=== PATIENT | female | born 2000 | race Caucasian/White ===

== ENCOUNTER 2019-03-22 04:11 | Inpatient (IN) | payer OTHER ==
[2019-03-22] VITALS (15 sets, daily range): BP systolic 95–117
[~2019-03-22] VITALS: Ht 154.9 cm; Wt 54.9 kg
--- NOTE | 2019-03-22 04:11 | NUR ---
0411 - Patient to ER bed 1 to gown for evaluation. Side rails up.
--- NOTE | 2019-03-22 04:11 | NUR ---
0411 - ER at bedside examining patient.
--- NOTE | 2019-03-22 04:11 | NUR ---
0411 - Called poison control prior to pt arrival. Cnc Mill And Lathe Operator stated the following: - Administer 50gm activated charcoal as long as it is safe to do so. - Draw salicylate levels Q2hr, if >35mg/dl, change fluids to Bicarb drip. If approaching or >90, consider hemodialysis. Continue to draw salicylate levels until peak and decline of at least 2 points. - If salicylate levels rise, consider GoLytely via NGT for whole bowel wash. - Draw a CMP initially, and then BMP Q2-4hr. If abnormal, check ABG.
--- NOTE | 2019-03-22 04:11 | NUR ---
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 Pt placed to gown and vehicle monitor technician, VSS. Pt AAOx3, respirations even and non-labored, denies c/o pain or discomfort, + nausea, states that she is depressed and doesn't want to live. Pt also states that she took xanax and alcohol.
[2019-03-22] MEDS ORDERED: ACTIVATED CHARCOAL 50 GM ORAL.SUSP PO ONE ×2 (04:15→04:24)
[2019-03-22] MEDS ORDERED: NACL 0.9% 1,000 ML IV ONE ×2 (04:15→05:15)
[2019-03-22] MEDS ORDERED: ONDANSETRON HCL 4 MG/2 ML VIAL IVP ONE (04:15)
[2019-03-22] MEDS ORDERED: ONDANSETRON HCL 4 MG/2 ML VIAL ONE (04:21)
--- NOTE | 2019-03-22 04:30 | NUR ---
Pt is resting in bed vital signs are stable. Will continue to monitor
--- NOTE | 2019-03-22 04:34 | NUR ---
Pt assisted to bedside comode, urine specimen collected and sent to lab.
[2019-03-22 04:35] LABS: BASOPHILS # (AUTO) 0.1 K/uL (0.0-0.2); BASOPHILS % (AUTO) 0.5 % (0.0-2.0); EOSINOPHILS # (AUTO) 0.1 K/uL (0.0-0.4); EOSINOPHILS % (AUTO) 0.5 % (0.0-4.0); HEMATOCRIT 38.8 % (36-48); HEMOGLOBIN 12.6 g/dL (12.0-16.0); LYMPHOCYTES # (AUTO) 3.7 K/uL (1.0-5.5); LYMPHOCYTES % (AUTO) 31.4 % (20.5-51.5); MEAN CORPUSCULAR HEMOGLOBIN 30 pg (27-31); MEAN CORPUSCULAR HGB CONC 33 % (32-36); MEAN CORPUSCULAR VOLUME 91 fL (79.0-98.0); MONOCYTES # (AUTO) 1.2 K/uL (0.0-1.0); MONOCYTES % (AUTO) 9.9 % (1.7-9.3); NEUTROPHILS # (AUTO) 6.8 K/uL (1.8-7.7); NEUTROPHILS % (AUTO) 57.7 % (40.0-70.0); PLATELET COUNT (AUTO) 307 K/uL (130-430); RED BLOOD CELL COUNT(AUTO) 4.26 MIL/uL (4.2-6.2); RED CELL DISTRIBUTION WIDTH 14.5 % (9.0-15.0); WHITE BLOOD COUNT (AUTO) 11.8 K/uL (4.5-11.0)
[2019-03-22 04:39] LABS: BILIRUBIN,URINE NEGATIVE (NEGATIVE); BLOOD, URINE NEGATIVE (NEGATIVE); CLARITY/URINE CLEAR (CLEAR); COLOR,URINE YELLOW (YELLOW); GLUCOSE,URINE NEGATIVE (NEGATIVE); KETONES,URINE TRACE (NEGATIVE); LEUKOCYTE ESTERASE ,URINE NEGATIVE (NEGATIVE); NITRITE, URINE NEGATIVE (NEGATIVE); PH,URINE 5.5 (5.0-8.0); PROTEIN URINE NEGATIVE (NEGATIVE); UROBILINOGEN,URINE 0.2 (0.2-1.0)
--- NOTE | 2019-03-22 04:40 | NUR ---
[facility] department arrive with empty bottle of medication that pt took. Active ingredients per tablet: Acetaminophen 250 mg, Aspirin 250 mg, and Caffeine 65 mg. Called Poison Control at [phone] and spoke with Yaniv. In addition to previous recommendations, obtain baseline Tylenol and repeat in 4 hours. If Tylenol level 150 or greater, start Mucomyst. Dr. Harris notified. Will continue to monitor patient.
[2019-03-22 04:48] LABS: BARBITURATE, URINE NEGATIVE (NEG <=200); BENZODIAZEPINE, URINE NEGATIVE (NEG <=150); CANNABINOID, URINE POSITIVE (NEG <=50); COCAINE, URINE NEGATIVE (NEG <=150); METHAMPHETAMINES SCREEN,URINE NEGATIVE (NEG <=500); OPIATE, URINE NEGATIVE (NEG <=100); PHENCYCLIDINE SCREEN,URINE NEGATIVE (NEG <=25); UR TRICYCLIC ANTIDEPRESSANTS NEGATIVE (NEG <=300); URINE AMPHETAMINE NEGATIVE (NEG <=500); URINE METHADONE NEGATIVE (NEG <=200); URINE OXYCODONE SCREEN NEGATIVE (NEG <=100); URINE PROPOXYPHENE SCREEN NEGATIVE (NEG <=300)
[2019-03-22 04:49] LABS: CALCIUM 8.7 mg/dL (8.4-11.0); CREATININE 0.61 mg/dL (0.55-1.30)
--- NOTE | 2019-03-22 04:50 | NUR ---
Pt assisted to bedside comode. Pt denies c/o pain or discomfort, VSS.
[2019-03-22 04:54] LABS: TOTAL BILIRUBIN 0.6 mg/dL (0.0-1.0)
[2019-03-22 04:58] LABS: POTASSIUM 2.8 mmol/L (3.5-5.1)
[2019-03-22] MEDS ORDERED: KCL 40mEq in D5/0.45NS 1000 mL 1,000 ML IV ONE (05:00)
--- NOTE | 2019-03-22 05:10 | NUR ---
Pt placed on 5150 hold by Research And Development Technicianjasmyne Dorsey # [id number] ([facility]'s Dept.)
--- NOTE | 2019-03-22 05:30 | NUR ---
Pt AAOx3, even and non-labored respirations, denies c/o pain or discomfort, no needs verbalized. VSS. IVFs infusing to patent PIV LAC with no s/s infiltration.
[2019-03-22] MEDS ORDERED: NACL 0.9% 1,000 ML IV SCH (05:45)
[2019-03-22] MEDS ORDERED: COMMUNICATION ORDER XX ONE (05:45)
--- NOTE | 2019-03-22 05:54 | NUR ---
Patient will be admitted to care of Dr. Stapleton. Admitted to ICU unit. Will go to room 1. Belongings list completed. Summary report printed. Report will be given at bedside.
--- NOTE | 2019-03-22 06:15 | NUR ---
Admission Note Pt in bed AAO. NSR shown on monitor. Pt on RA saturating in the mid-high 90s. VSS. No s/s of distress or c/o of pain at this time. Pt has LAC 18g in place. Will continue to monitor.
--- NOTE | 2019-03-22 06:28 | NUR ---
Consult Nephro. Sandra Cai called (Dr. Benedict mergers and acquisitions consultant) spoke to sunitha dialed [phone] Diaz
[2019-03-22] MEDS ORDERED: ALBUTEROL SULFATE 0.083% 2.5 MG/3 ML VIAL.NEB INH PRN (06:30)
--- NOTE | 2019-03-22 07:17 | NUR ---
Endorsement Report given to oncoming RN at bedside via SBA approach.
--- NOTE | 2019-03-22 07:20 | NUR ---
Received patient and endorsement from [facility] shift nurse. Patient in bed sleeping. Call light with in reach. Side rails up. In no acute distress.
[2019-03-22 07:21] LABS: BASOPHILS % (AUTO) 0.4 % (0.0-2.0); EOSINOPHILS % (AUTO) 0.1 % (0.0-4.0); HEMATOCRIT 35.5 % (36-48); HEMOGLOBIN 11.7 g/dL (12.0-16.0); LYMPHOCYTES % (AUTO) 17.4 % (20.5-51.5); MEAN CORPUSCULAR HEMOGLOBIN 30 pg (27-31); MEAN CORPUSCULAR HGB CONC 33 % (32-36); MEAN CORPUSCULAR VOLUME 91 fL (79.0-98.0); MONOCYTES # (AUTO) 0.9 K/uL (0.0-1.0); MONOCYTES % (AUTO) 8.2 % (1.7-9.3); NEUTROPHILS # (AUTO) 8.4 K/uL (1.8-7.7); NEUTROPHILS % (AUTO) 73.9 % (40.0-70.0); PLATELET COUNT (AUTO) 304 K/uL (130-430); RED BLOOD CELL COUNT(AUTO) 3.92 MIL/uL (4.2-6.2); RED CELL DISTRIBUTION WIDTH 14.7 % (9.0-15.0); WHITE BLOOD COUNT (AUTO) 11.4 K/uL (4.5-11.0)
[2019-03-22 07:30] LABS: CALCIUM 7.7 mg/dL (8.4-11.0); CREATININE 0.55 mg/dL (0.55-1.30); POTASSIUM 3.6 mmol/L (3.5-5.1)
--- NOTE | 2019-03-22 07:30 | NUR ---
Informed MD Mcintyre patient potassium 2.8. New order of potassium 60 mEq one time dose. Orders placed and carried out.
--- NOTE | 2019-03-22 07:30 | NUR ---
Patient sleeping in bed. Vital signs stable. In no acute distress. Side rails up, call light with in reach. Will continue to monitor.
[2019-03-22 07:36] LABS: ALBUMIN 3.5 g/dL (3.4-4.8); TOTAL BILIRUBIN 0.4 mg/dL (0.0-1.0)
--- NOTE | 2019-03-22 07:45 | NUR ---
Assisted patient to commode. Had one bowel movement. Call light with in reach. In no acute distress.
[2019-03-22] MEDS ORDERED: ACETYLCYSTEINE IV ONE ×3 (08:00→13:00)
[2019-03-22] MEDS ORDERED: D5W IV ONE ×3 (08:00→13:00)
--- NOTE | 2019-03-22 08:00 | NUR ---
MD Benedict new order bicarb drip 3 amp in D5w 100 cc/hr and to discuss labs with poison control. Orders placed and carried out.
--- NOTE | 2019-03-22 08:00 | NUR ---
Patient awake and alert. Vital signs stable. In no acute distress. Side rails up, call light with in reach. Will continue to monitor.
[2019-03-22] MEDS ORDERED: POTASSIUM CHLORIDE 10 MEQ TAB.PRT.SR PO ONE (08:15)
--- NOTE | 2019-03-22 08:15 | NUR ---
Patient awake and alert. Vital signs stable. In no acute distress. Side rails up, call light with in reach. Will continue to monitor.
--- NOTE | 2019-03-22 08:17 | NUR ---
Do from poison control called and was informed current labs. Stated may discontinue mucomyst and to repeat blood draw for acetaminophen and aspirin, informed MD Harrington and approved of order. MD Harrington stated no need to redraw blood work of aspirin and acetaminophen if trending down. Orders placed and carried out.
[2019-03-22] MEDS ORDERED: ONDANSETRON HCL 4 MG/2 ML VIAL IVP PRN (08:30)
--- NOTE | 2019-03-22 08:30 | NUR ---
Patient awake and alert. Vital signs stable. In no acute distress. Side rails up, call light with in reach. Will continue to monitor.
--- NOTE | 2019-03-22 08:31 | NUR ---
Consult Psych. Dr. Snider called (Dr. Colon television production clerk) spoke to temi dialed [phone] Mcintyre
[2019-03-22] MEDS ORDERED: POTASSIUM CHLORIDE 10 MEQ TAB.PRT.SR ONE (08:40)
--- NOTE | 2019-03-22 08:45 | NUR ---
Patient awake and alert. Vital signs stable. In no acute distress. Side rails up, call light with in reach. Will continue to monitor.
[2019-03-22] MEDS ORDERED: SODIUM BICARBONATE 8.4% VIAL 150 MEQ in D5W 1,000 ML IV SCH (09:00)
[2019-03-22] MEDS ORDERED: MAGNESIUM SULFATE 1 GM in NS 100 ML IV ONE (09:00)
--- NOTE | 2019-03-22 09:00 | NUR ---
Patient awake and alert in bed. Vital signs stable. In no acute distress. Side rails up, call light with in reach. Will continue to monitor.
--- NOTE | 2019-03-22 09:15 | NUR ---
Patient asleep laying in bed. Vital signs stable. In no acute distress. Side rails up, call light with in reach. Will continue to monitor.
[2019-03-22 09:17] LABS: PHOSPHORUS 3.5 mg/dL (2.7-4.5)
--- NOTE | 2019-03-22 09:45 | NUR ---
Patient asleep laying in bed. Vital signs stable. In no acute distress. Side rails up, call light with in reach. Will continue to monitor.
--- NOTE | 2019-03-22 10:00 | NUR ---
Patient asleep laying in bed. Vital signs stable. In no acute distress. Side rails up, call light with in reach. Will continue to monitor.
--- NOTE | 2019-03-22 10:15 | NUR ---
Patient talking to friend at bedside. Vital signs stable. In no acute distress. Side rails up, call light with in reach. Will continue to monitor.
--- NOTE | 2019-03-22 10:30 | NUR ---
Patient talking to friend at bedside. Vital signs stable. In no acute distress. Side rails up, call light with in reach. Will continue to monitor.
[2019-03-22] MEDS ORDERED: METOCLOPRAMIDE HCL 10 MG/2 ML VIAL IVP PRN (10:45)
--- NOTE | 2019-03-22 10:45 | NUR ---
Patient talking to friend at bedside. Vital signs stable. In no acute distress. Side rails up, call light with in reach. Will continue to monitor.
[2019-03-22] MEDS ORDERED: METOCLOPRAMIDE HCL 10 MG/2 ML VIAL ONE (10:51)
--- NOTE | 2019-03-22 11:00 | NUR ---
Patient talking to friend at bedside. Vital signs stable. In no acute distress. Side rails up, call light with in reach. Will continue to monitor.
--- NOTE | 2019-03-22 11:15 | NUR ---
Patient talking to friend at bedside. Vital signs stable. In no acute distress. Side rails up, call light with in reach. Will continue to monitor.
--- NOTE | 2019-03-22 11:30 | NUR ---
Patient talking to friend at bedside. Vital signs stable. In no acute distress. Side rails up, call light with in reach. Will continue to monitor.
--- NOTE | 2019-03-22 11:45 | NUR ---
Patient sitting in bed. Alert and oriented. Vital signs stable. In no acute distress. Side rails up, call light with in reach. Will continue to monitor.
[2019-03-22] MEDS ORDERED: METOCLOPRAMIDE HCL 10 MG/2 ML VIAL IVP SCH (12:00)
--- NOTE | 2019-03-22 12:00 | NUR ---
Patient sitting in bed. Alert and oriented. Vital signs stable. In no acute distress. Side rails up, call light with in reach. Security used metal wand on patient with no metal objects noted. Will continue to monitor.
--- NOTE | 2019-03-22 12:15 | NUR ---
Patient sitting in bed. Alert and oriented. Vital signs stable. In no acute distress. Side rails up, call light with in reach. Will continue to monitor.
--- NOTE | 2019-03-22 12:30 | NUR ---
Patient sitting in bed. Alert and oriented. Vital signs stable. In no acute distress. Side rails up, call light with in reach. Will continue to monitor.
--- NOTE | 2019-03-22 12:45 | NUR ---
Patient sitting in bed. Alert and oriented. Vital signs stable. In no acute distress. Side rails up, call light with in reach. Will continue to monitor.
--- NOTE | 2019-03-22 13:00 | NUR ---
Md Mcintyre ordered to clear liquids, advance diet as tolerated. Patient eating lunch sitting in bed side rails x2 up, call light in reach. In no acute distress noted.
--- NOTE | 2019-03-22 13:15 | NUR ---
Patient sitting in bed. Alert, awake, and oriented. In no acute distress. Side rails x 2 up. Call light in reach.
--- NOTE | 2019-03-22 13:30 | NUR ---
Patient sitting in bed. Alert, awake, and oriented. In no acute distress. Side rails x 2 up. Call light in reach.
--- NOTE | 2019-03-22 13:45 | NUR ---
Patient sitting in bed. Alert, awake, and oriented. In no acute distress. Side rails x 2 up. Vital signs stable. Call light in reach.
--- NOTE | 2019-03-22 14:16 | NUR ---
MD Benedict new order discontinue IV hydration.
--- NOTE | 2019-03-22 14:40 | NUR ---
Patient sitting in bed. Alert, awake, and oriented. In no acute distress. Side rails x 2 up. Vital signs stable. Call light in reach.
--- NOTE | 2019-03-22 14:45 | NUR ---
Patient sitting in bed. Alert, awake, and oriented. In no acute distress. Side rails x 2 up. Vital signs stable. Call light in reach.
--- NOTE | 2019-03-22 15:00 | NUR ---
Patient sitting in bed. Alert, awake, and oriented. In no acute distress. Side rails x 2 up. Vital signs stable. Call light in reach.
--- NOTE | 2019-03-22 15:00 | NUR ---
MD Benedict stated patient medically stable to discharge if approved by primary . Placed page to Md Mcintyre. Addendum: 03/22/19 at 1706 by Briana Sanchez RN Medically stable to discharge to [facility]
--- NOTE | 2019-03-22 15:15 | NUR ---
Patient sitting in bed. Alert, awake, and oriented. In no acute distress. Side rails x 2 up. Vital signs stable. Call light in reach.
--- NOTE | 2019-03-22 15:30 | NUR ---
Patient sitting in bed. Alert, awake, and oriented. In no acute distress. Side rails x 2 up. Vital signs stable. Call light in reach.
--- NOTE | 2019-03-22 15:45 | NUR ---
Patient sleeping in bed.In no acute distress. Side rails x 2 up. Vital signs stable. Call light in reach.
--- NOTE | 2019-03-22 16:00 | NUR ---
Patient sleeping in bed.In no acute distress. Side rails x 2 up. Vital signs stable. Call light in reach.
--- NOTE | 2019-03-22 16:15 | NUR ---
Patient sleeping in bed.In no acute distress. Side rails x 2 up. Vital signs stable. Call light in reach.
--- NOTE | 2019-03-22 16:30 | NUR ---
Patient sleeping in bed.In no acute distress. Side rails x 2 up. Vital signs stable. Call light in reach.
--- NOTE | 2019-03-22 16:45 | NUR ---
Patient talking to two friends at bedside. Sitting in bed. Vital signs stable in no acute distress noted. Breathing even and unlabored. Call light with in reach. Will continue to monitor.
--- NOTE | 2019-03-22 17:00 | NUR ---
MD called back, stated patient medically stable to discharge to [facility].
--- NOTE | 2019-03-22 17:00 | NUR ---
Patient talking to friends at bedside. Informed patient transfer to [facility] and agreed. Side rails x 2 up. Call light with in reach. In no acute distress.
--- NOTE | 2019-03-22 17:05 | NUR ---
Talked to Sujit from [facility] regarding intake, stated will have charge nurse call back.
--- NOTE | 2019-03-22 17:15 | NUR ---
Patient at bedside awake and alert with friend. Side rails x 2 up. Call light with in reach. In no acute distress. Vitals stable. Will continue to monitor.
--- NOTE | 2019-03-22 18:00 | NUR ---
Endorsed report regarding patient to Lisa at [facility]. Stated patient may arrive BLS transport to building [facility], must remove IV insertion sites before transfer. Informed Lisa patient is not per ER. Patient signed belonging list and consent to transfer.
--- NOTE | 2019-03-22 19:15 | NUR ---
Endorsed patient to NOC shift nurse. Patient at bedside awake and alert with friend. Side rails x 2 up. Call light with in reach. In no acute distress. Vitals stable. Will continue to monitor.
--- NOTE | 2019-03-22 19:30 | NUR ---
PM Assessment Pt in bed AAO. No s/s of distress noted. VSS. No c/o of pain noted. Pt denies SI at this time. IV sites have been discontinued. Pt to be picked up @2029 by [facility] via BLS, and transferred to [facility]. Will continue to monitor.
--- NOTE | 2019-03-22 19:45 | NUR ---
Pt in bed. No c/o of pain, no s/s of distress. Pt states no N/V Pt denies SI at this time.. Boyfriend at bedside. Will continue to monitor.
--- NOTE | 2019-03-22 20:00 | NUR ---
Pt in Bed AAO. Suicidal Risk Assessment completed. Pt denies SI at this time. No N/V noted, Pt not in distress. Will continue to monitor.
--- NOTE | 2019-03-22 20:15 | NUR ---
Pt in bed, calm and cooperative. Pt states no N/V or pain. Pt denies SI at this time. Boyfriend at bedside. Will continue to monitor.
--- NOTE | 2019-03-22 20:22 | NUR ---
[facility] at bedside to mushroom picker Pt for transfer to [facility].
--- NOTE | 2019-03-22 20:35 | NUR ---
PT Transferred Report given to at [facility] from [facility]. Transfer packet with Transfer Orders and Medication Reconciliation form given to EMT with report. Exitcare provided. [facility] ID band removed, replaced with ID band with pt's name and . IV catheter removed, intact and dressing applied, no active bleeding. All belongings sent with patient. Patient left floor via gurney escorted by EMT in no distress.
--- NOTE | 2019-03-22 20:37 | NUR ---
Spoke with Radha in intake from [facility], made aware that Pt is in transit to hospital. They are aware and ready to accept Pt.
== END 2019-03-22 20:38 | disposition psychiatric hospital, planned readmission (93) | DRG 917 ==
LOC: SED 04:11 → SIC 05:36
PROVIDERS: ADMIT Internal Medicine; ATTEND Internal Medicine
DX: T39.012A Poisoning by aspirin, intentional self-harm, initial encounter (principal); J96.90 Respiratory failure, unspecified, unspecified whether with hypoxia or hypercapnia; E87.2 Acidosis; F12.90 Cannabis use, unspecified, uncomplicated; F32.9 Major depressive disorder, single episode, unspecified; E87.6 Hypokalemia; Z72.89 Other problems related to lifestyle; Y92.89 Other specified places as the place of occurrence of the external cause
CPT/HCPCS: 36415; 80053; 80307; 81003; 83735-TC; 84100-TC; 85025; 96361; 96365; 96375; 99291; G0480; G0481; G0482; J0132; J2405; J2765; J3475; J7030; J7060